=== PATIENT | female | born 1940 ===

== ENCOUNTER 2024-10-05 18:51 | Emergency (ER) | payer OTHER, SELFPAY ==
[2024-10-05] VITALS (7 sets, daily range): BP systolic 148–215; BP diastolic 66–115; PULSE 68–120; RESP 12–20; TEMP 36.4–36.8; O2SAT 96–98; BMI 27.3
--- NOTE | ~2024-10-05 | CT_ITS ---
EXAMINATION: CT HEAD WITHOUT CONTRAST CLINICAL INFORMATION: Accelerated hypertension. COMPARISON: None TECHNIQUE: Contiguous axial imaging was performed from the skull base to vertex without intravenous administration of contrast. This CT examination was performed using dose optimization techniques as appropriate, variously including the following: *Automated exposure control. *Adjustment of mA and/or kV according to patient size (this includes techniques or standardized protocols for targeted exams where dose is matched to indication/reason for exam; i.e. extremities or head). *Use of iterative reconstruction technique. DLP: 611 mGy-cm FINDINGS: There is no evidence of acute intracranial hemorrhage or edematous territorial infarction. Pollard-white matter differentiation is preserved. Scattered and partially confluent hypoattenuation in the periventricular and deep white matter are consistent with moderate microangiopathy. Proportional prominence of the ventricles and sulcal spaces without evidence of obstructive hydrocephalus. No abnormal mass effect or midline shift. No extra-axial fluid collections. No acute soft tissue or osseous abnormalities. Mild mucosal thickening of the paranasal sinuses. The mastoid air cells and middle ear cavities are clear. Moderate degenerative arthropathy of the temporomandibular joint. Bilateral lens extractions. CT/CT head/brain wo IV con IMPRESSION: 1. No evidence of acute intracranial hemorrhage or edematous territorial infarction. 2. Moderate underlying microangiopathy and generalized cerebral volume loss. Electronically signed by: Jose De Jesus Feng DO 10/05/2024 09:31 PM [place]
--- NOTE | 2024-10-05 19:13 | ED_ITS ---
HPI - Altered Mental Status General Chief Complaint: Altered Mental Status Stated Complaint: AMS, headache all day, bp 200/100 Time Seen by Provider: 10/05/24 19:11 Source: patient and EMS Mode of arrival: EMS Limitations: no limitations History of Present Illness ED Provider: HPI narrative: Patient's history of hypertension lives alone with health aide visiting and taking care of her brought by EMS for increased confusion for last 15- 20 minute no fall fast dust post stroke was negative patient complaining of headache with blood pressure of 215/115 on arrival Related Data Allergies Allergy/AdvReac Type Severity Reaction Status Date / Time No Known Allergies Allergy Verified 10/05/24 19:17 Review of Systems 2 Review of Systems: Yes Unobtainable due to mental status PMFSH Social History Social History Advance Directives: No Advance Directives Information Provided: Yes Do you have a plan to hurt others: No Plan Physical Exam ED Vital Signs: Vital Signs - 24 hr 10/05/24 19:11 10/05/24 19:28 10/05/24 19:29 Temperature 98.3 F Pulse Rate 119 H 111 H 95 Respiratory Rate 20 15 Blood Pressure 215/115 H 200/94 H 148/66 H Pulse Oximetry 98 Oxygen Delivery Method Room Air 10/05/24 20:51 10/05/24 21:33 10/05/24 21:43 Temperature 97.5 F Pulse Rate 84 68 Respiratory Rate 18 20 Blood Pressure 194/78 H 184/88 H 184/88 H Pulse Oximetry 96 Oxygen Delivery Method Room Air 10/05/24 23:47 Temperature 97.5 F Pulse Rate 75 Respiratory Rate 12 Blood Pressure 184/90 H Pulse Oximetry 96 Oxygen Delivery Method Room Air BMI result Body Mass Index 27.3 Appearance: Alert. Oriented X2. No acute distress. Eyes: PERRLA, No Nystagmus ENT: Pharynx normal. Oral Mucosa moist Neck: Normal inspection. Neck supple. CVS: Normal heart rate and rhythm. Pulses normal. Respiratory: No respiratory distress. Equal air entry bilateral, no wheezing/rales/rhonchi Abdomen: Soft and nontender. Bowel sounds are present, no mass palpable, no CVA tenderness Skin: Skin warm and dry. Normal skin color. Normal skin turgor. Extremities: No lower extremity edema. No calf tenderness Neuro: Oriented X23. No motor deficit. No sensory deficit.No cerebellar signs , cranial nerves II-XII intact NIH Stroke Scale Internal: Initial- Upon Arrival Level of Consciousness: Alert Level of Consciousness Questions: Answers one question correctly Best Gaze: Normal Visual: No visual loss Facial Palsy: Normal Motor Arm (Right): No drift Motor Arm (Left): No drift Motor Leg (Right): No drift Motor Leg (Left): No drift Limb Ataxia: Absent Sensory: Normal Best Language: No aphasia Dysarthia: Normal Extinction and Inattention: No abnormality Medications Administered Discontinued Medications Generic Name Dose Route Start Last Admin Trade Name Freq PRN Reason Stop Dose Admin Labetalol HCl 10 mg 10/05/24 19:21 10/05/24 19:28 Labetalol Hcl 100 Mg/20 Ml Vial IVPUSH 10/05/24 19:22 10 mg ONCE ONE Administration Losartan Potassium 50 mg 10/05/24 20:58 10/05/24 21:33 Losartan Potassium 50 Mg Tablet PO 10/05/24 20:59 50 mg ONCE ONE Administration Protocol Medical Decision Making Medical Decision Making [facility] Narrative: Patient with acute onset of confusion etiology not clear details not available at this time patient is not safe to go home labs essentially your normal except for WBCs in the urine also, patient has elevated blood pressure losartan was given patient's urine shows do go esterase positive with 6-10 WBCs no bacteria not clear likely chronic colonization will hold antibiotic at this time Will get case management involved for disposition Differential Diagnosis Differential Diagnoses: The differential diagnosis associated with the presentation includes Lab Data [facility] Lab Attestation statement: I reviewed the patient's lab results. 10/05/24 20:01 10/05/24 20:01 Labs: Lab Results 10/05/24 10/05/24 Range/Units 20:01 20:45 WBC 5.9 (4.8-10.8) X10*3/uL RBC 3.84 L (4.20-5.50) X10*6/uL Hgb 11.8 L (12.0-16.0) g/dl Hct 35.9 L (37.0-47.0) % MCV 93.5 (80.0-98.0) fL MCH 30.7 (27.0-33.0) pg MCHC 32.9 (31.0-35.0) g/dl RDW 13.2 (11.0-16.0) % Plt Count 286 (160-400) X10*3/uL MPV 9.8 (9.4-12.3) fL Immature Gran % (Auto) 0.2 (0.0-0.4) % Neut % (Auto) 72.2 (45-73) % Lymph % (Auto) 15.0 L (20-40) % [place] % (Auto) 9.7 (2-11) % Eos % (Auto) 2.2 (0-4) % Baso % (Auto) 0.7 (0-2) % Lymph # (Auto) 0.9 L (1.2-4.9) X10*3/uL [place] # (Auto) 0.6 (0.1-1.2) X10*3/uL Eos # (Auto) 0.1 (0.0-0.4) X10*3/uL Baso # (Auto) 0.0 (0.0-0.2) X10*3/uL Abs Immat Gran (auto) 0.01 (0.00-0.03) X10*3/uL Absolute Neuts (auto) 4.2 (2.0-8.3) x10*3/uL Absolute Nucleated RBC 0.000 (0.0-0.012) X10*3/uL Nucleated RBC % (auto) 0.0 (0.0-0.2) /100WBC PT 11.6 (10.9-12.4) SEC INR 1.0 (0.9-1.1) Sodium 141 (135-145) mmol/L Potassium 3.8 (3.3-5.1) mmol/L Chloride 106 (96-108) mmol/L Carbon Dioxide 27 (22-29) mmol/L Anion Gap 12 (12-20) BUN 20 H (9-16) mg/dL Creatinine 0.83 (0.5-1.4) mg/dL Estim Creat Clear Calc 41.9 Estimated GFR > 60 Random Glucose 222 H (60-115) mg/dL Calcium 9.6 (8.4-10.2) mg/dL Total Bilirubin 0.3 (0.0-1.0) mg/dL AST 32 H (5-31) U/L ALT 18 (0-31) U/L Alkaline Phosphatase 52 (39-117) U/L Troponin I High Sens 4.1 (<3.5-17.0) ng/L Total Protein 7.1 (6.5-8.0) g/dL Albumin 3.7 (3.5-5.0) g/dL Urine Color Yellow Urine Appearance Clear Urine pH 6.0 (5.0-9.0) Ur Specific [place] 1.015 (1.005-1.025) Urine Protein Negative (Neg-Trace) mg/dL Urine Glucose (UA) 100 H (Negative) mg/dL Urine Ketones Negative (Negative) mg/dL Urine Blood Trace H (Negative) Urine Nitrite Negative (Negative) Ur Leukocyte Esterase Large (3+) H (Negative) Urine RBC 0-2 (0-2) /HPF Urine WBC 6-10 H (0-5) /HPF Ur Squamous Epith Cells 0-2 (0-2) /HPF Urine Bacteria None Seen (None Seen) Hyaline Casts 0-2 (0-2) /LPF Discharge Plan Discharge Clinical Impression: Dementia, Hypertension Patient Disposition: Still a Patient Print Language: Swedish
--- NOTE | 2024-10-05 19:21 | ECG_ITS ---
Test Reason : AMS Blood Pressure : / mmHG Vent. Rate : 075 BPM Atrial Rate : 075 BPM P-R Int : 176 ms QRS Dur : 068 ms QT Int : 374 ms P-R-T Axes : 042 024 059 degrees QTc Int : 417 ms Normal sinus rhythm Normal ECG No previous ECGs available Referred By: Andrzej Pederson Electronically Signed By:POLO JEFFRIES MD
--- NOTE | 2024-10-05 19:24 | PC.NURSE ---
pt biba from home, a&ox0, unsure of pt baseline, respirations even and unlabored. pt unable to state complaints at this time. no neuro deficits, all extremities equal. 20G placed in left ac by ems. provider at bedside. macroeconomics professor at bedside.
[2024-10-05] MEDS: Labetalol HCL 100 MG/20 ML VIAL 10 MG IVPUSH (19:28)
[2024-10-05 20:06] LABS: MANUAL DIFF FLAG NO
[2024-10-05 20:20] LABS: Alanine Aminotransferase 18 U/L (0-31); Albumin Level 3.7 g/dL (3.5-5.0); Alkaline Phosphatase 52 U/L (39-117); Anion Gap 12 (12-20); Aspartate Amino Transferase 32 U/L (5-31); Basophils Percent Auto 0.7 % (0-2); Bilirubin Total 0.3 mg/dL (0.0-1.0); Blood Urea Nitrogen 20 mg/dL (9-16); Calcium 9.6 mg/dL (8.4-10.2); Carbon Dioxide 27 mmol/L (22-29); Chloride 106 mmol/L (96-108); Creatinine Clr Calc Pharmacy 41.9; Eosinophils Absolute Auto 0.1 X10*3/uL (0.0-0.4); Eosinophils Percent Auto 2.2 % (0-4); Estimated Glomerular Filt Rate > 60; Glucose Random 222 mg/dL (60-115); Hematocrit 35.9 % (37.0-47.0); Hemoglobin 11.8 g/dl (12.0-16.0); Imm Gran Abs Auto 0.01 X10*3/uL (0.00-0.03); Imm Gran Pct Auto 0.2 % (0.0-0.4); Lymphocytes Absolute Auto 0.9 X10*3/uL (1.2-4.9); Mean Corpuscular HGB Conc 32.9 g/dl (31.0-35.0); Mean Corpuscular Hemoglobin 30.7 pg (27.0-33.0); Mean Corpuscular Volume 93.5 fL (80.0-98.0); Mean Platelet Volume 9.8 fL (9.4-12.3); Monocytes Absolute Auto 0.6 X10*3/uL (0.1-1.2); Monocytes Percent Auto 9.7 % (2-11); Neutrophils Absolute Auto 4.2 x10*3/uL (2.0-8.3); Neutrophils Percent Auto 72.2 % (45-73); Platelet Count 286 X10*3/uL (160-400); Potassium 3.8 mmol/L (3.3-5.1); Red Blood Count 3.84 X10*6/uL (4.20-5.50); Red Cell Distribution Width 13.2 % (11.0-16.0); Sodium 141 mmol/L (135-145); Total Protein 7.1 g/dL (6.5-8.0); White Blood Count 5.9 X10*3/uL (4.8-10.8)
[2024-10-05 20:27] LABS: Troponin-I High Sensitivity 4.1 ng/L (<3.5-17.0)
[2024-10-05 20:39] LABS: Prothrombin Time 11.6 SEC (10.9-12.4)
--- NOTE | 2024-10-05 20:54 | PC.NURSE ---
button attaching machine operator at bedside. pt reports she takes losartan at home but is unsure of dose.
[2024-10-05 20:57] LABS: Appearance Urine Clear; Color Urine Yellow; Glucose Urine UA 100 mg/dL (Negative); Leukocyte Esterase Urine Large (3+) (Negative); Nitrite Urine Negative (Negative); Specific Gravity - Urine 1.015 (1.005-1.025); UMIC TRIGGER UACC YES; Urine Blood Trace (Negative); Urine Ketones Negative (Negative); Urine Protein Negative (Neg-Trace)
[2024-10-05 21:20] LABS: Bacteria Urine None Seen (None Seen); Hyaline Casts Urine 0-2 /LPF (0-2); RBC Urine 0-2 /HPF (0-2); Squamous Epithelial Cell Urine 0-2 /HPF (0-2); UACC Culture Trigger YES
[2024-10-05] MEDS: Losartan Potassium 50 MG TABLET PO (21:33)
--- NOTE | 2024-10-05 21:33 | PC.NURSE ---
pt medicated per mar, tolerated whole with water.
[2024-10-06] VITALS (9 sets, daily range): BP systolic 113–174; BP diastolic 59–86; PULSE 59–74; RESP 13–25; TEMP 36.3–36.8; O2SAT 95–97
--- NOTE | 2024-10-06 01:00 | PC.NURSE ---
provider aware of pt BP at this time, no new orders.
[2024-10-06] MEDS: amLODIPine Besylate 5 MG TABLET PO (01:48)
[2024-10-06] MEDS: Labetalol HCL 100 MG/20 ML VIAL 10 MG IVPUSH (01:48)
--- NOTE | 2024-10-06 01:53 | PC.NURSE ---
pt medicated per mar, tolerated well with water. pt given IV dose of blood pressure medications.
--- NOTE | 2024-10-06 05:29 | PC.NURSE ---
pt a&ox3, at this time, fur sewer at bedside. pt reports sister Martha # [phone], attempted to call, no answer at this time.
--- NOTE | 2024-10-06 11:40 | PC.NURSE ---
elopement band placed on pt
--- NOTE | 2024-10-06 11:45 | PC.NURSE ---
called pts son Fei who is on his way to lemon picker pt
--- NOTE | 2024-10-06 11:48 | MHC.CM.ED ---
Received case management consult overnight. Was waiting for PT eval to be completed when Donna CAI made CM aware that consult was due to not being able to contact family last night. Patient provided Donna CAI with son's telephone number. Son is en route to transport patient home. CM deferred at this time.
[2024-10-06 12:17] LABS: COVID-19 Test Negative (Negative); IDNOW Serial# 58CA691E
== END 2024-10-06 12:40 | disposition home or self-care (01) ==
PROVIDERS: Registered Nurse Emergency; Emergency Provider Internal Medicine; PCP Student in an Organized Health Care Education/Training Program
DX: F03.90 Unspecified dementia, unspecified severity, without behavioral disturbance, psychotic disturbance, mood disturbance, and anxiety (principal); I10 Essential (primary) hypertension; R51.9 Headache, unspecified; R29.700 NIHSS score 0; Z11.52 Encounter for screening for COVID-19
CPT/HCPCS: 36415; 70450; 80053; 81001; 81003; 84484; 85025; 85610; 87086; 87635; 93005; 96374; 96375; 96376; 97161; 99284; 99285; J1920

== ENCOUNTER → 2024-10-05 19:21 | Outpatient (BNV) | payer OTHER, SELFPAY | PROVIDERS: Emergency Provider Internal Medicine; Visit Provider Internal Medicine Cardiovascular Disease | DX: R41.82 Altered mental status, unspecified (principal) | CPT/HCPCS: 93010 ==